=== PATIENT | female | born 1970 | race Caucasian/White ===

== ENCOUNTER 2019-04-19 15:05 | Emergency (ER) | payer MEDICAID ==
[~2019-04-19] VITALS: Ht 160 cm; Wt 93.8 kg
[~2019-04-19 15:05] MED LIST: BEN25 PO; IBUP-1561 PO; METR500T PO; PENI500T PO
[2019-04-19 15:40] VITALS: Ht 160 cm; Wt 93.8 kg
[2019-04-19] MEDS ORDERED: LIDOCAINE 1% (MPF) 5 ML VIAL INJ ONE (19:30)
[2019-04-19] MEDS ORDERED: CEFTRIAXONE 250 MG INJ IM ONE (19:30)
[2019-04-19] MEDS ORDERED: AZITHROMYCIN 500 MG TAB PO ONE (19:30)
[2019-04-19 21:00] VITALS: BP 114/72; PULSE 104; RESP 20
== END 2019-04-19 21:01 | disposition home or self-care (01) ==
LOC: FTE 15:05
DX: N76.0 Acute vaginitis (principal)
CPT/HCPCS: 76830; 76856; 81001; 81025; 82962; 87210; 87591; 96372; J0696; Z7502; Z7610